=== PATIENT | female | born 1965 | race Caucasian/White ===

== ENCOUNTER 2017-12-22 08:32 | Day surgery (SDC) | payer OTHER ==
--- NOTE | 2017-12-22 16:15 | GI Report ---
REFERRING PHYSICIAN: Dr. Landry Muller BRAKE REPAIRER AIR: Leonel Gray MD PROCEDURE MEDICATION: Propofol as per anesthesia. INDICATIONS: This is a 52-year-old woman referred for a screening colonoscopy. This is her first colonoscopy. She denies changes in her bowel habits or blood in her stool. Her father had lymphoma. No one has had colorectal cancer. PROCEDURE PERFORMED: Colonoscopy with polypectomy. PROCEDURE: An Olympus video colonoscope was advanced to the rectum. She has a slightly redundant colon. It took some maneuvering to reach the cecum, but in the cecum , patient had 2 polyps. One is about a 3 mm sessile polyp and the other is kind of a villous-appearing flat area that covers at least a 4 mm size, which was also removed with electrocautery. The terminal ileum was normal. On slow withdrawal, the ascending colon and transverse colon, no obvious intraluminal lesions noted. The descending colon and sigmoid with redundancy. No obvious intraluminal lesions were noted. Retroflexion of the rectum was normal. FINDINGS: Patient had 2 polyps in the cecum removed with electrocautery. One was 3 to 4 mm sessile polyp and one was at least a 4 mm flat polyp removed with electrocautery also. RECOMMENDATIONS: 1. Pending the pathology of the polyps, she may need her colon re-looked at again at least within 3 years, not longer than 5 years. 2. Increase fiber in the diet. cc: Dr. Landry MEREDITH
== END 2017-12-22 08:33 ==
LOC: OPSURG 08:32
PROVIDERS: ATTEND Internal Medicine Gastroenterology
DX: Z12.11 Encounter for screening for malignant neoplasm of colon (principal); D12.0 Benign neoplasm of cecum; I10 Essential (primary) hypertension; Z80.7 Family history of other malignant neoplasms of lymphoid, hematopoietic and related tissues
CPT/HCPCS: 45384; J2001; J2704; J7120; S1016